=== PATIENT | male | born 1985 | race Caucasian/White ===

== ENCOUNTER 2017-05-23 18:22 | Emergency (ER) | payer OTHER ==
[~2017-05-23] VITALS: Ht 167.6 cm; Wt 63.5 kg
[2017-05-23 18:30] VITALS: Ht 167.6 cm; Wt 63.5 kg
[2017-05-23 22:37] VITALS: BP 137/90
== END 2017-05-23 22:37 | disposition home or self-care (01) ==
LOC: ED 18:22
DX: S92.424A Nondisplaced fracture of distal phalanx of right great toe, initial encounter for closed fracture (principal); X58.XXXA Exposure to other specified factors, initial encounter; Y93.55 Activity, bike riding; Y92.89 Other specified places as the place of occurrence of the external cause; Y99.8 Other external cause status
CPT/HCPCS: 90715; J2001